=== PATIENT | male | born 1950 | race Caucasian/White ===

== ENCOUNTER 2020-06-06 16:09 | Inpatient (IN) ==
[2020-06-06 17:13] LABS: Basophils % 0.3 %; Eosinophils # 0.1 K/mcL (0.0-0.6); Hemoglobin 15.8 g/dL (12.9-16.9); Immature Granulocytes % 1.2 % (0-4); Lymphocytes # 0.9 K/mcL (0.6-4.6); Lymphocytes % 14.8 %; Mean Corpuscular HGB Conc 33.6 g/dL (31.6-35.5); Mean Corpuscular Hemoglobin 30.3 pg (28.0-33.3); Mean Platelet Volume 10.3 fL (9.4-12.4); Monocytes # 0.9 K/mcL (0.0-1.3); Monocytes % 14.6 %; Platelet Count 199 K/mcL (140-400); Red Blood Count 5.22 M/mcL (4.19-5.50); Red Cell Distribution Width 13.9 % (11.5-14.5); Segmented Neutrophils % 67.1 %; White Blood Count 5.9 K/mcL (4.3-11.1)
[2020-06-06 17:33] LABS: Bacteria,Urine Few per hpf (None-Few); Bilirubin,Urine Negative (Negative); Blood,Urine Negative (Negative); Clarity,Urine Clear (Clear); Color,Urine Light-Yellow (Yellow); Glucose,Urine (UA) Normal (Normal); Hyaline Casts,Urine Moderate per lpf (None Seen); Ketones,Urine Trace mg/dL (Negative); Leukocyte Esterase,Urine Moderate (Negative); Mucus,Urine Few per lpf (None-Few); Nitrite,Urine Negative (Negative); PH,Urine 5.5 pH Units (5.0-8.0); Protein,Urine Negative (Neg-Trace); RBC,Urine 0-3 per hpf (0-3); Specific Gravity,Urine 1.018 (1.010-1.025); Squamous Epithelial Cell,Urine Few per hpf (None-Few); Urobilinogen,Urine Normal (Normal)
[2020-06-06 17:34] LABS: BUN/Creatinine Ratio 20 (6-26); Blood Urea Nitrogen 25 mg/dL (8-23); Calcium 9.2 mg/dL (8.6-10.3); Carbon Dioxide 26 mEq/L (23-29); Chloride 104 mEq/L (98-107); Glucose 98 mg/dL (70-105); Osmolality,Calculated 288 (280-300); Potassium 4.1 mEq/L (3.5-5.1); Sodium 137 mEq/L (136-145); Troponin I < 0.03 ng/mL (< 0.04); eGFR For African Americans > 60 (> 60); eGFR For Non-African Americans 58 (> 60)
[2020-06-06] MEDS ORDERED: Aspirin 81 MG TAB.CHEW PO ONE (17:57)
[2020-06-06 18:16] LABS: Adenovirus Not Detected (Not Detect); Bordetella Pertussis Not Detected (Not Detect); Chlamydophila pneumoniae Not Detected (Not Detect); Coronavirus 229E Not Detected (Not Detect); Coronavirus HKU1 Not Detected (Not Detect); Coronavirus NL63 Not Detected (Not Detect); Coronavirus OC43 Not Detected (Not Detect); Human Metapneumovirus Not Detected (Not Detect); Human Rhinovirus/Enterovirus Not Detected (Not Detect); Influenza A Subtype 2009 H1 Not Detected (Not Detect); Influenza B Not Detected (Not Detect); Mycoplasma pneumoniae Not Detected (Not Detect); Parainfluenza Virus 1 Not Detected (Not Detect); Parainfluenza Virus 2 Not Detected (Not Detect); Parainfluenza Virus 3 Not Detected (Not Detect); Parainfluenza Virus 4 Not Detected (Not Detect); Respiratory Syncytial Virus Not Detected (Not Detect); SARS-CoV-2 Not Detected (Not Detect)
[2020-06-06] MEDS ORDERED: Naloxone 0.4 MG/ML INJ IVP PRN (22:06)
[2020-06-06] MEDS ORDERED: Acetaminophen 325 MG TABLET PO PRN (22:06)
[2020-06-06] MEDS ORDERED: Ondansetron 4 MG/2 ML VIAL IVP PRN (22:06)
[2020-06-06] MEDS ORDERED: Melatonin 3 MG TABLET PO PRN (22:06)
[2020-06-07] MEDS: Carbidopa/Levodopa ER 50/200 TABLET PO SCH ×5 (00:53→21:37)
[2020-06-07 04:55] LABS: Basophils % 0.5 %; Eosinophils # 0.1 K/mcL (0.0-0.6); Eosinophils % 1.9 %; Hematocrit 45.7 % (37.5-50.1); Hemoglobin 15.4 g/dL (12.9-16.9); Immature Granulocytes % 1.1 % (0-4); Lymphocytes # 0.8 K/mcL (0.6-4.6); Lymphocytes % 12.9 %; Mean Corpuscular HGB Conc 33.7 g/dL (31.6-35.5); Mean Corpuscular Hemoglobin 30.1 pg (28.0-33.3); Mean Corpuscular Volume 89.4 fL (83.0-100.0); Mean Platelet Volume 10.2 fL (9.4-12.4); Monocytes # 0.7 K/mcL (0.0-1.3); Monocytes % 10.9 %; Neutrophils # 4.7 K/mcL (1.6-8.9); Platelet Count 186 K/mcL (140-400); Red Blood Count 5.11 M/mcL (4.19-5.50); Red Cell Distribution Width 13.7 % (11.5-14.5); Segmented Neutrophils % 72.7 %; White Blood Count 6.4 K/mcL (4.3-11.1)
[2020-06-07 05:15] LABS: Alanine Aminotransferase 8 Units/L (7-52); Albumin 3.8 g/dL (3.5-5.7); Albumin/Globulin Ratio 1.2 (1.1-2.2); Alkaline Phosphatase 59 Units/L (34-104); Aspartate Amino Transferase 12 Units/L (13-39); BUN/Creatinine Ratio 23 (6-26); Bilirubin,Total 0.7 mg/dL (0.3-1.0); Blood Urea Nitrogen 25 mg/dL (8-23); Calcium 8.9 mg/dL (8.6-10.3); Carbon Dioxide 24 mEq/L (23-29); Chloride 106 mEq/L (98-107); Globulin 3.1 g/dL (2.4-3.5); Glucose 129 mg/dL (70-105); Magnesium 2.1 mg/dL (1.6-2.6); Osmolality,Calculated 290 (280-300); Phosphorous 3.1 mg/dL (2.7-4.5); Potassium 4.5 mEq/L (3.5-5.1); Sodium 137 mEq/L (136-145); Total Protein 6.9 g/dL (6.4-8.9); eGFR For African Americans > 60 (> 60); eGFR For Non-African Americans > 60 (> 60)
[2020-06-07] MEDS ORDERED: Perflutren Lipid Microsphere 1.3 ML in 0.9 % Sodium Chloride 8.7 ML IVP PRN (05:19)
[2020-06-07] MEDS ORDERED: *HR* Heparin 5,000 UNIT/ML VIAL IVP ONE (05:20)
[2020-06-07] MEDS ORDERED: *HR* Heparin 5,000 UNIT/ML VIAL IVP PRN ×2 (05:20)
[2020-06-07 05:59] LABS: Heparin anti-factor XA UFH < 0.04 IU/mL (0.30-0.70); Prothrombin Time 12.1 Seconds (9.4-12.1)
[2020-06-07] MEDS ORDERED: *HR* Heparin 5,000 UNIT/ML VIAL SQ SCH (06:00)
[2020-06-07] MEDS: Heparin 25,000UNIT/250ML 1/2NS 25,000 UNIT/250 ML IV.SOLN IVC SCH (06:19)
[2020-06-07] MEDS: Gabapentin 300 MG CAPSULE PO SCH ×3 (10:04→20:17)
[2020-06-07] MEDS ORDERED: *HR* HYDROcodone/Acet 5/325 mg TABLET PO PRN (18:02)
[2020-06-08 04:11] LABS: Hematocrit 47.5 % (37.5-50.1); Hemoglobin 15.8 g/dL (12.9-16.9); Mean Corpuscular HGB Conc 33.3 g/dL (31.6-35.5); Mean Corpuscular Hemoglobin 29.5 pg (28.0-33.3); Mean Corpuscular Volume 88.8 fL (83.0-100.0); Mean Platelet Volume 10.1 fL (9.4-12.4); Platelet Count 182 K/mcL (140-400); Red Blood Count 5.35 M/mcL (4.19-5.50); Red Cell Distribution Width 14.2 % (11.5-14.5); White Blood Count 5.5 K/mcL (4.3-11.1)
[2020-06-08 04:28] LABS: Alanine Aminotransferase 3 Units/L (7-52); Albumin 3.8 g/dL (3.5-5.7); Albumin/Globulin Ratio 1.4 (1.1-2.2); Alkaline Phosphatase 62 Units/L (34-104); Aspartate Amino Transferase 14 Units/L (13-39); BUN/Creatinine Ratio 26 (6-26); Bilirubin,Total 0.7 mg/dL (0.3-1.0); Blood Urea Nitrogen 28 mg/dL (8-23); Calcium 9.1 mg/dL (8.6-10.3); Carbon Dioxide 25 mEq/L (23-29); Chloride 106 mEq/L (98-107); Globulin 2.8 g/dL (2.4-3.5); Glucose 165 mg/dL (70-105); Osmolality,Calculated 293 (280-300); Potassium 4.2 mEq/L (3.5-5.1); Sodium 137 mEq/L (136-145); Total Protein 6.6 g/dL (6.4-8.9); eGFR For African Americans > 60 (> 60); eGFR For Non-African Americans > 60 (> 60)
[2020-06-08] MEDS: Heparin 25,000UNIT/250ML 1/2NS 25,000 UNIT/250 ML IV.SOLN IVC SCH ×2 (05:04→16:40)
[2020-06-08] MEDS ORDERED: Regadenoson 0.4 MG/5 ML SYRINGE IVP ONE (06:07)
[2020-06-08] MEDS ORDERED: Furosemide 20 MG TABLET PO SCH (09:00)
[2020-06-08] MEDS: Carbidopa/Levodopa ER 50/200 TABLET PO SCH ×2 (10:26→20:47)
[2020-06-08] MEDS: Gabapentin 300 MG CAPSULE PO SCH ×3 (10:26→20:47)
[2020-06-08] MEDS: amLODIPine 5 MG TABLET PO SCH (12:27)
[2020-06-08] MEDS: Aspirin 81 MG TAB.CHEW PO SCH (17:47)
[2020-06-08] MEDS: Furosemide 20 MG TABLET PO SCH (17:47)
[2020-06-09 04:10] LABS: Hematocrit 46.2 % (37.5-50.1); Hemoglobin 15.4 g/dL (12.9-16.9); Mean Corpuscular HGB Conc 33.3 g/dL (31.6-35.5); Mean Corpuscular Hemoglobin 30.3 pg (28.0-33.3); Mean Corpuscular Volume 90.8 fL (83.0-100.0); Mean Platelet Volume 10.4 fL (9.4-12.4); Platelet Count 179 K/mcL (140-400); Red Blood Count 5.09 M/mcL (4.19-5.50); Red Cell Distribution Width 14.1 % (11.5-14.5); White Blood Count 6.5 K/mcL (4.3-11.1)
[2020-06-09 04:30] LABS: Alanine Aminotransferase < 3 Units/L (7-52); Albumin 3.5 g/dL (3.5-5.7); Albumin/Globulin Ratio 1.3 (1.1-2.2); Alkaline Phosphatase 55 Units/L (34-104); Aspartate Amino Transferase 12 Units/L (13-39); BUN/Creatinine Ratio 26 (6-26); Bilirubin,Total 0.9 mg/dL (0.3-1.0); Blood Urea Nitrogen 31 mg/dL (8-23); Calcium 8.8 mg/dL (8.6-10.3); Carbon Dioxide 27 mEq/L (23-29); Chloride 105 mEq/L (98-107); Globulin 2.7 g/dL (2.4-3.5); Glucose 105 mg/dL (70-105); Osmolality,Calculated 291 (280-300); Sodium 137 mEq/L (136-145); Total Protein 6.2 g/dL (6.4-8.9); eGFR For African Americans > 60 (> 60); eGFR For Non-African Americans > 60 (> 60)
[2020-06-09] MEDS: Furosemide 20 MG TABLET PO SCH (06:06)
[2020-06-09] MEDS: Gabapentin 300 MG CAPSULE PO SCH (08:51)
[2020-06-09] MEDS: Aspirin 81 MG TAB.CHEW PO SCH (08:51)
[2020-06-09] MEDS: Carbidopa/Levodopa ER 50/200 TABLET PO SCH (08:51)
[2020-06-09] MEDS: Heparin 25,000UNIT/250ML 1/2NS 25,000 UNIT/250 ML IV.SOLN IVC SCH (09:22)
[2020-06-09] MEDS: amLODIPine 5 MG TABLET PO SCH (09:56)
[2020-06-09 14:27] VITALS: BP 105/60
== END 2020-06-09 14:30 | disposition home health service (06) | DRG 303 ==
LOC: 3BNU 16:09 → EMEROOARM 16:09 → SUATTDRO 19:30 → 3BNU 20:16
PROVIDERS: ADMIT Family Medicine; ATTEND Registered Nurse

== ENCOUNTER 2020-06-18 23:03 | Inpatient (IN) ==
[2020-06-19] MEDS ORDERED: Isovue-370 500 ML BOTTLE IVP ONE (00:17)
[2020-06-19 00:32] LABS: Basophils # 0.1 K/mcL (0.0-0.2); Basophils % 0.9 %; Eosinophils # 0.2 K/mcL (0.0-0.6); Eosinophils % 3.1 %; Hematocrit 48.8 % (37.5-50.1); Hemoglobin 15.9 g/dL (12.9-16.9); Immature Granulocytes % 1.7 % (0-4); Lymphocytes # 1.2 K/mcL (0.6-4.6); Lymphocytes % 20.5 %; Mean Corpuscular HGB Conc 32.6 g/dL (31.6-35.5); Mean Corpuscular Hemoglobin 29.2 pg (28.0-33.3); Mean Corpuscular Volume 89.7 fL (83.0-100.0); Mean Platelet Volume 10.1 fL (9.4-12.4); Monocytes # 0.9 K/mcL (0.0-1.3); Monocytes % 15.1 %; Neutrophils # 3.4 K/mcL (1.6-8.9); Platelet Count 198 K/mcL (140-400); Red Blood Count 5.44 M/mcL (4.19-5.50); Segmented Neutrophils % 58.7 %; White Blood Count 5.8 K/mcL (4.3-11.1)
[2020-06-19 00:46] LABS: BUN/Creatinine Ratio 21 (6-26); Blood Urea Nitrogen 29 mg/dL (8-23); Calcium 9.3 mg/dL (8.6-10.3); Carbon Dioxide 23 mEq/L (23-29); Chloride 105 mEq/L (98-107); Glucose 109 mg/dL (70-105); Osmolality,Calculated 294 (280-300); Potassium 4.8 mEq/L (3.5-5.1); Sodium 139 mEq/L (136-145); eGFR For African Americans > 60 (> 60); eGFR For Non-African Americans 50 (> 60)
[2020-06-19 00:47] LABS: Troponin I < 0.03 ng/mL (< 0.04)
[2020-06-19] MEDS ORDERED: Aspirin 81 MG TAB.CHEW PO ONE (03:25)
[2020-06-19] MEDS ORDERED: Melatonin 3 MG TABLET PO PRN (04:57)
[2020-06-19] MEDS ORDERED: Acetaminophen 325 MG TABLET PO PRN (04:57)
[2020-06-19] MEDS ORDERED: Nystatin POWDER 30 GM BOTTLE TP PRN (04:57)
[2020-06-19] MEDS ORDERED: Ondansetron 4 MG/2 ML VIAL IVP PRN (05:09)
[2020-06-19] MEDS ORDERED: Naloxone 0.4 MG/ML INJ IVP PRN (05:09)
[2020-06-19] MEDS ORDERED: Nitroglycerin 0.4 MG TAB.SUBL SL PRN (05:09)
[2020-06-19] MEDS ORDERED: *HR* Heparin 5,000 UNIT/ML VIAL SQ SCH (06:15)
[2020-06-19] MEDS: *HR* Heparin 5,000 UNIT/ML VIAL SQ SCH ×3 (08:52→20:10)
[2020-06-19] MEDS: Cyanocobalamin (B-12) 1,000 MCG TABLET PO SCH (08:53)
[2020-06-19] MEDS: Gabapentin 300 MG CAPSULE PO SCH ×3 (08:53→20:10)
[2020-06-19] MEDS: Furosemide 20 MG TABLET PO SCH (08:53)
[2020-06-19] MEDS: Cholecalciferol (D-3) 1,000 UNIT (25MCG) TABLET PO SCH (08:53)
[2020-06-19] MEDS: Carbidopa/Levodopa ER 50/200 TABLET PO SCH ×3 (08:56→20:10)
[2020-06-19] MEDS: Fluticasone Propionate Nasal 50 MCG/SPRAY BOTTLE NS SCH (08:57)
[2020-06-19] MEDS ORDERED: amLODIPine 5 MG TABLET PO SCH (09:00)
[2020-06-19] MEDS ORDERED: Aspirin Enteric Coated 81 MG Tablet PO SCH (09:00)
[2020-06-19] MEDS ORDERED: *HR* HYDROcodone/Acet 5/325 mg TABLET PO PRN (19:02)
[2020-06-19] MEDS: amLODIPine 5 MG TABLET PO SCH (20:11)
[2020-06-19] MEDS: Clotrimazole 1% CRM 15 GM TUBE TP SCH (20:11)
[2020-06-20 03:16] LABS: Estimated Average Glucose 143 mg/dl; Hemoglobin A1C 6.6 %
[2020-06-20 03:18] LABS: Hematocrit 45.3 % (37.5-50.1); Hemoglobin 14.5 g/dL (12.9-16.9); Mean Corpuscular Hemoglobin 29.2 pg (28.0-33.3); Mean Corpuscular Volume 91.3 fL (83.0-100.0); Mean Platelet Volume 10.4 fL (9.4-12.4); Platelet Count 207 K/mcL (140-400); Red Blood Count 4.96 M/mcL (4.19-5.50); Red Cell Distribution Width 14.1 % (11.5-14.5); White Blood Count 6.8 K/mcL (4.3-11.1)
[2020-06-20 03:39] LABS: BUN/Creatinine Ratio 23 (6-26); Blood Urea Nitrogen 31 mg/dL (8-23); Carbon Dioxide 25 mEq/L (23-29); Chloride 103 mEq/L (98-107); Chol/HDL Ratio 2.9 (0-4.9); Cholesterol 95 mg/dL (< 200); Glucose 162 mg/dL (70-105); HDL Cholesterol 33 mg/dL (40-59); LDL Cholesterol,Calculated 49 mg/dL (< 100); Magnesium 2.1 mg/dL (1.6-2.6); Osmolality,Calculated 292 (280-300); Potassium 4.5 mEq/L (3.5-5.1); Sodium 136 mEq/L (136-145); Triglycerides 66 mg/dL (< 150); eGFR For African Americans > 60 (> 60); eGFR For Non-African Americans 52 (> 60)
[2020-06-20] MEDS: *HR* Heparin 5,000 UNIT/ML VIAL SQ SCH ×3 (05:31→21:07)
[2020-06-20] MEDS: Carbidopa/Levodopa ER 50/200 TABLET PO SCH ×3 (07:54→17:27)
[2020-06-20] MEDS: Aspirin 81 MG TAB.CHEW PO SCH (09:52)
[2020-06-20] MEDS: Furosemide 20 MG TABLET PO SCH (09:53)
[2020-06-20] MEDS: Gabapentin 300 MG CAPSULE PO SCH ×3 (09:54→21:07)
[2020-06-20] MEDS: Clotrimazole 1% CRM 15 GM TUBE TP SCH ×2 (09:54→21:13)
[2020-06-20] MEDS: Cholecalciferol (D-3) 1,000 UNIT (25MCG) TABLET PO SCH (09:55)
[2020-06-20] MEDS: Cyanocobalamin (B-12) 1,000 MCG TABLET PO SCH (09:55)
[2020-06-20] MEDS: Fluticasone Propionate Nasal 50 MCG/SPRAY BOTTLE NS SCH (09:55)
[2020-06-20] MEDS: amLODIPine 5 MG TABLET PO SCH ×2 (09:55→21:07)
[2020-06-20 10:41] LABS: Bilirubin,Urine Negative (Negative); Blood,Urine Trace (Negative); Clarity,Urine Clear (Clear); Color,Urine Yellow (Yellow); Glucose,Urine (UA) Normal (Normal); Ketones,Urine Trace mg/dL (Negative); Leukocyte Esterase,Urine Negative (Negative); Mucus,Urine Few per lpf (None-Few); Nitrite,Urine Negative (Negative); Protein,Urine Trace mg/dL (Neg-Trace); Specific Gravity,Urine 1.027 (1.010-1.025); Squamous Epithelial Cell,Urine Few per hpf (None-Few); Urobilinogen,Urine Normal (Normal); WBC,Urine 0-3 per hpf (0-3)
[2020-06-20] MEDS ORDERED: Acetaminophen 325 MG TABLET PO PRN (11:57)
[2020-06-20] MEDS: Sennosides/Docusate Sodium TABLET PO SCH ×2 (14:51→21:07)
[2020-06-20] MEDS: polyethylene glycoL 3350 17 GM POWD.PACK PO SCH (14:51)
[2020-06-21 03:05] LABS: Hematocrit 51.7 % (37.5-50.1); Mean Corpuscular HGB Conc 32.7 g/dL (31.6-35.5); Mean Corpuscular Volume 91.7 fL (83.0-100.0); Mean Platelet Volume 10.1 fL (9.4-12.4); Platelet Count 190 K/mcL (140-400); Red Blood Count 5.64 M/mcL (4.19-5.50); Red Cell Distribution Width 14.1 % (11.5-14.5)
[2020-06-21 03:06] LABS: Hemoglobin 16.9 g/dL (12.9-16.9)
[2020-06-21 03:43] LABS: BUN/Creatinine Ratio 29 (6-26); Blood Urea Nitrogen 34 mg/dL (8-23); Calcium 9.1 mg/dL (8.6-10.3); Carbon Dioxide 20 mEq/L (23-29); Chloride 103 mEq/L (98-107); Glucose 96 mg/dL (70-105); Osmolality,Calculated 283 (280-300); Potassium 4.9 mEq/L (3.5-5.1); Sodium 133 mEq/L (136-145); eGFR For African Americans > 60 (> 60); eGFR For Non-African Americans > 60 (> 60)
[2020-06-21] MEDS: *HR* Heparin 5,000 UNIT/ML VIAL SQ SCH ×3 (05:52→21:35)
[2020-06-21] MEDS: Carbidopa/Levodopa ER 50/200 TABLET PO SCH ×3 (06:22→17:19)
[2020-06-21] MEDS: amLODIPine 5 MG TABLET PO SCH (07:28)
[2020-06-21] MEDS: Cyanocobalamin (B-12) 1,000 MCG TABLET PO SCH (07:39)
[2020-06-21] MEDS: Furosemide 20 MG TABLET PO SCH (07:39)
[2020-06-21] MEDS: Aspirin 81 MG TAB.CHEW PO SCH (07:39)
[2020-06-21] MEDS: Sennosides/Docusate Sodium TABLET PO SCH ×3 (07:40→21:44)
[2020-06-21] MEDS: Gabapentin 300 MG CAPSULE PO SCH ×3 (07:40→21:35)
[2020-06-21] MEDS: Clotrimazole 1% CRM 15 GM TUBE TP SCH ×2 (07:40→21:36)
[2020-06-21] MEDS: Cholecalciferol (D-3) 1,000 UNIT (25MCG) TABLET PO SCH (07:40)
[2020-06-21] MEDS: polyethylene glycoL 3350 17 GM POWD.PACK PO SCH (07:40)
[2020-06-21] MEDS: Fluticasone Propionate Nasal 50 MCG/SPRAY BOTTLE NS SCH (07:41)
[2020-06-21] MEDS: *HR* Metformin 500 MG TABLET PO SCH ×2 (11:49→15:09)
[2020-06-21] MEDS ORDERED: 0.9 % Sodium Chloride 250 ML IV ONE (13:49)
[2020-06-21] MEDS ORDERED: Acetaminophen 325 MG TABLET PO PRN (15:32)
[2020-06-21] MEDS ORDERED: *HR* HYDROcodone/Acet 5/325 mg TABLET PO PRN (15:33)
[2020-06-21] MEDS ORDERED: 0.9 % Sodium Chloride 500 ML IV ONE (15:54)
[2020-06-22] MEDS: *HR* Heparin 5,000 UNIT/ML VIAL SQ SCH (06:08)
[2020-06-22] MEDS: Carbidopa/Levodopa ER 50/200 TABLET PO SCH (06:09)
[2020-06-22] MEDS: Cyanocobalamin (B-12) 1,000 MCG TABLET PO SCH (09:09)
[2020-06-22] MEDS: Clotrimazole 1% CRM 15 GM TUBE TP SCH (09:10)
[2020-06-22] MEDS: Fluticasone Propionate Nasal 50 MCG/SPRAY BOTTLE NS SCH (09:10)
[2020-06-22] MEDS: Cholecalciferol (D-3) 1,000 UNIT (25MCG) TABLET PO SCH (09:10)
[2020-06-22] MEDS: *HR* Metformin 500 MG TABLET PO SCH (09:10)
[2020-06-22] MEDS: Furosemide 20 MG TABLET PO SCH (09:10)
[2020-06-22] MEDS: Sennosides/Docusate Sodium TABLET PO SCH (09:10)
[2020-06-22] MEDS: Aspirin 81 MG TAB.CHEW PO SCH (09:10)
[2020-06-22] MEDS: polyethylene glycoL 3350 17 GM POWD.PACK PO SCH (09:10)
[2020-06-22] MEDS: Gabapentin 300 MG CAPSULE PO SCH (09:10)
[2020-06-22 10:15] VITALS: BP 103/60
== END 2020-06-22 13:59 | disposition home or self-care (01) | DRG 313 ==
LOC: 2ANU 23:03 → EMEROOARM 23:03 → SUATTDRO 06-19 04:22 → 2ANU 06-19 04:50 → SUATTDRO 06-20 20:54
PROVIDERS: ADMIT Student in an Organized Health Care Education/Training Program; ATTEND Internal Medicine

== ENCOUNTER 2020-08-20 14:29 | Inpatient (IN) ==
[2020-08-20] MEDS ORDERED: Orphenadrine 60 MG/2 ML VIAL IM ONE (16:44)
[2020-08-20] MEDS ORDERED: *HR* OxyCODONE/APAP 5/325 TABLET PO ONE (16:44)
[2020-08-20 18:29] LABS: Basophils % 0.5 %; Eosinophils # 0.2 K/mcL (0.0-0.6); Eosinophils % 2.3 %; Hematocrit 46.7 % (37.5-50.1); Hemoglobin 15.3 g/dL (12.9-16.9); Immature Granulocytes % 1.3 % (0-4); Lymphocytes # 1.1 K/mcL (0.6-4.6); Mean Corpuscular HGB Conc 32.8 g/dL (31.6-35.5); Mean Corpuscular Hemoglobin 29.4 pg (28.0-33.3); Mean Corpuscular Volume 89.8 fL (83.0-100.0); Mean Platelet Volume 10.6 fL (9.4-12.4); Monocytes # 0.9 K/mcL (0.0-1.3); Monocytes % 11.8 %; Neutrophils # 5.2 K/mcL (1.6-8.9); Platelet Count 200 K/mcL (140-400); Red Cell Distribution Width 14.4 % (11.5-14.5); Segmented Neutrophils % 69.1 %; White Blood Count 7.5 K/mcL (4.3-11.1)
[2020-08-20 19:04] LABS: Alanine Aminotransferase < 3 Units/L (7-52); Albumin 3.7 g/dL (3.5-5.7); Albumin/Globulin Ratio 1.4 (1.1-2.2); Alkaline Phosphatase 58 Units/L (34-104); Aspartate Amino Transferase 12 Units/L (13-39); BUN/Creatinine Ratio 18 (6-26); Bilirubin,Total 0.8 mg/dL (0.3-1.0); Blood Urea Nitrogen 19 mg/dL (8-23); Calcium 9.1 mg/dL (8.6-10.3); Carbon Dioxide 25 mEq/L (23-29); Chloride 104 mEq/L (98-107); Globulin 2.6 g/dL (2.4-3.5); Glucose 104 mg/dL (70-105); Osmolality,Calculated 289 (280-300); Potassium 3.7 mEq/L (3.5-5.1); Sodium 138 mEq/L (136-145); Total Protein 6.3 g/dL (6.4-8.9); eGFR For African Americans > 60 (> 60); eGFR For Non-African Americans > 60 (> 60)
[2020-08-20] MEDS ORDERED: Naloxone 0.4 MG/ML INJ IVP PRN (20:47)
[2020-08-20] MEDS ORDERED: Ondansetron 4 MG/2 ML VIAL IVP PRN (20:47)
[2020-08-20] MEDS ORDERED: Melatonin 3 MG TABLET PO PRN (20:47)
[2020-08-20] MEDS ORDERED: Acetaminophen 325 MG TABLET PO PRN (20:47)
[2020-08-20] MEDS ORDERED: D5% in Water 1,000 ML IVC PRN (22:41)
[2020-08-20] MEDS ORDERED: *HR* Dextrose 50 % in Water (Vial) 50 ML VIAL IVP PRN (22:41)
[2020-08-20] MEDS ORDERED: Dextrose Gel 15 GM/37.5 ML TUBE PO PRN ×2 (22:41)
[2020-08-20] MEDS: Insulin LISPRO 300 UNITS/3 ML VIAL SUBQ SCH (23:47)
[2020-08-21 02:07] LABS: Basophils % 0.6 %; Eosinophils # 0.2 K/mcL (0.0-0.6); Eosinophils % 2.4 %; Hematocrit 47.8 % (37.5-50.1); Hemoglobin 15.9 g/dL (12.9-16.9); Immature Granulocytes % 1.1 % (0-4); Lymphocytes # 1.2 K/mcL (0.6-4.6); Lymphocytes % 16.9 %; Mean Corpuscular HGB Conc 33.3 g/dL (31.6-35.5); Mean Corpuscular Hemoglobin 29.7 pg (28.0-33.3); Mean Corpuscular Volume 89.3 fL (83.0-100.0); Mean Platelet Volume 10.3 fL (9.4-12.4); Monocytes # 0.9 K/mcL (0.0-1.3); Monocytes % 12.6 %; Neutrophils # 4.8 K/mcL (1.6-8.9); Platelet Count 201 K/mcL (140-400); Red Blood Count 5.35 M/mcL (4.19-5.50); Red Cell Distribution Width 14.5 % (11.5-14.5); Segmented Neutrophils % 66.4 %; White Blood Count 7.2 K/mcL (4.3-11.1)
[2020-08-21 02:26] LABS: BUN/Creatinine Ratio 21 (6-26); Blood Urea Nitrogen 20 mg/dL (8-23); Calcium 9.2 mg/dL (8.6-10.3); Carbon Dioxide 26 mEq/L (23-29); Chloride 104 mEq/L (98-107); Glucose 120 mg/dL (70-105); Magnesium 1.5 mg/dL (1.6-2.6); Osmolality,Calculated 292 (280-300); Phosphorous 2.9 mg/dL (2.7-4.5); Potassium 3.6 mEq/L (3.5-5.1); Sodium 139 mEq/L (136-145); eGFR For African Americans > 60 (> 60); eGFR For Non-African Americans > 60 (> 60)
[2020-08-21] MEDS: Insulin LISPRO 300 UNITS/3 ML VIAL SUBQ SCH ×2 (06:18→12:08)
[2020-08-21] MEDS: *HR* Heparin 5,000 UNIT/ML VIAL SQ SCH ×2 (06:23→17:44)
[2020-08-21] MEDS: Carbidopa/Levodopa ER 50/200 TABLET PO SCH ×3 (11:36→21:26)
[2020-08-21] MEDS: Gabapentin 300 MG CAPSULE PO SCH ×2 (14:22→21:26)
[2020-08-21] MEDS ORDERED: Melatonin 3 MG TABLET PO PRN (17:13)
[2020-08-21] MEDS: Clotrimazole 1% CRM 15 GM TUBE TP SCH (21:28)
[2020-08-22 05:15] LABS: Hematocrit 48.7 % (37.5-50.1); Hemoglobin 15.8 g/dL (12.9-16.9); Mean Corpuscular HGB Conc 32.4 g/dL (31.6-35.5); Mean Corpuscular Hemoglobin 29.3 pg (28.0-33.3); Mean Corpuscular Volume 90.4 fL (83.0-100.0); Mean Platelet Volume 10.1 fL (9.4-12.4); Platelet Count 200 K/mcL (140-400); Red Blood Count 5.39 M/mcL (4.19-5.50); Red Cell Distribution Width 14.7 % (11.5-14.5); White Blood Count 7.1 K/mcL (4.3-11.1)
[2020-08-22 05:33] LABS: Estimated Average Glucose 131 mg/dl; Hemoglobin A1C 6.2 %
[2020-08-22 05:37] LABS: % Iron Saturation 18 % (20-55); BUN/Creatinine Ratio 20 (6-26); Blood Urea Nitrogen 20 mg/dL (8-23); Calcium 9.3 mg/dL (8.6-10.3); Carbon Dioxide 27 mEq/L (23-29); Chloride 102 mEq/L (98-107); Glucose 124 mg/dL (70-105); Iron 55 mcg/dL (65-175); Magnesium 1.9 mg/dL (1.6-2.6); Osmolality,Calculated 288 (280-300); Phosphorous 2.4 mg/dL (2.7-4.5); Potassium 3.7 mEq/L (3.5-5.1); Sodium 137 mEq/L (136-145); Transferrin 224 mg/dL (203-362); eGFR For African Americans > 60 (> 60); eGFR For Non-African Americans > 60 (> 60)
[2020-08-22 05:53] LABS: Ferritin 81 ng/mL (20-250)
[2020-08-22 05:58] LABS: Folate 10.1 ng/mL (3.0-16.0)
[2020-08-22] MEDS: *HR* Heparin 5,000 UNIT/ML VIAL SQ SCH ×2 (06:19→17:41)
[2020-08-22] MEDS: Insulin LISPRO 300 UNITS/3 ML VIAL SUBQ SCH ×3 (07:17→15:55)
[2020-08-22] MEDS ORDERED: Iron Sucrose Complex 400 MG in 0.9 % Sodium Chloride 250 ML IVPB ONE (08:05)
[2020-08-22] MEDS: Cholecalciferol (D-3) 1,000 UNIT (25MCG) TABLET PO SCH (08:55)
[2020-08-22] MEDS: Cyanocobalamin (B-12) 1,000 MCG TABLET PO SCH (08:55)
[2020-08-22] MEDS: Carbidopa/Levodopa ER 50/200 TABLET PO SCH ×3 (08:56→20:05)
[2020-08-22] MEDS: Gabapentin 300 MG CAPSULE PO SCH ×3 (08:56→20:09)
[2020-08-22] MEDS: Aspirin 81 MG TAB.CHEW PO SCH (08:56)
[2020-08-22] MEDS ORDERED: Furosemide 20 MG TABLET PO SCH (09:00)
[2020-08-22] MEDS: Clotrimazole 1% CRM 15 GM TUBE TP SCH ×2 (10:11→20:07)
[2020-08-22] MEDS: Fluticasone Propionate Nasal 50 MCG/SPRAY BOTTLE NS SCH (10:12)
[2020-08-22] MEDS ORDERED: Baclofen 10 MG TABLET PO ONE (12:34)
[2020-08-22 18:04] LABS: Bacteria,Urine Few per hpf (None-Few); Bilirubin,Urine Negative (Negative); Blood,Urine Negative (Negative); Clarity,Urine Clear (Clear); Color,Urine Yellow (Yellow); Glucose,Urine (UA) Normal (Normal); Ketones,Urine Trace mg/dL (Negative); Leukocyte Esterase,Urine Moderate (Negative); Mucus,Urine Few per lpf (None-Few); Nitrite,Urine Negative (Negative); Protein,Urine Trace mg/dL (Neg-Trace); Specific Gravity,Urine 1.026 (1.010-1.025); Squamous Epithelial Cell,Urine Few per hpf (None-Few); Urobilinogen,Urine Normal (Normal); WBC,Urine 15-30 per hpf (0-3)
[2020-08-22] MEDS: Baclofen 10 MG TABLET PO SCH (20:05)
[2020-08-23 03:43] LABS: Hematocrit 52.8 % (37.5-50.1); Hemoglobin 17.1 g/dL (12.9-16.9); Mean Corpuscular HGB Conc 32.4 g/dL (31.6-35.5); Mean Corpuscular Hemoglobin 29.6 pg (28.0-33.3); Mean Corpuscular Volume 91.3 fL (83.0-100.0); Platelet Count 213 K/mcL (140-400); Red Blood Count 5.78 M/mcL (4.19-5.50); Red Cell Distribution Width 14.6 % (11.5-14.5); White Blood Count 6.8 K/mcL (4.3-11.1)
[2020-08-23 04:04] LABS: BUN/Creatinine Ratio 24 (6-26); Blood Urea Nitrogen 25 mg/dL (8-23); Calcium 9.8 mg/dL (8.6-10.3); Carbon Dioxide 27 mEq/L (23-29); Chloride 101 mEq/L (98-107); Glucose 87 mg/dL (70-105); Magnesium 2.1 mg/dL (1.6-2.6); Osmolality,Calculated 292 (280-300); Phosphorous 3.4 mg/dL (2.7-4.5); Sodium 139 mEq/L (136-145); eGFR For African Americans > 60 (> 60); eGFR For Non-African Americans > 60 (> 60)
[2020-08-23] MEDS: *HR* Heparin 5,000 UNIT/ML VIAL SQ SCH (05:18)
[2020-08-23] MEDS: Insulin LISPRO 300 UNITS/3 ML VIAL SUBQ SCH ×3 (07:44→17:44)
[2020-08-23] MEDS ORDERED: Multivit/Ca/Min/Fe/FA 1 TAB TABLET PO SCH (08:00)
[2020-08-23] MEDS: Cholecalciferol (D-3) 1,000 UNIT (25MCG) TABLET PO SCH (08:21)
[2020-08-23] MEDS: Aspirin 81 MG TAB.CHEW PO SCH (08:21)
[2020-08-23] MEDS: Cyanocobalamin (B-12) 1,000 MCG TABLET PO SCH (08:21)
[2020-08-23] MEDS: Gabapentin 300 MG CAPSULE PO SCH ×2 (08:22→13:41)
[2020-08-23] MEDS: Baclofen 10 MG TABLET PO SCH (08:22)
[2020-08-23] MEDS: Fluticasone Propionate Nasal 50 MCG/SPRAY BOTTLE NS SCH (08:32)
[2020-08-23] MEDS: Carbidopa/Levodopa ER 50/200 TABLET PO SCH (09:24)
[2020-08-23] MEDS: Clotrimazole 1% CRM 15 GM TUBE TP SCH (10:08)
[2020-08-23 15:19] VITALS: BP 147/74
== END 2020-08-23 18:14 | disposition short-term general hospital (02) | DRG 552 ==
LOC: 3NENU 14:29 → EMEROOARM 14:29 → SUATTDRO 19:37 → 3NENU 20:45 → SUATTDRO 08-21 22:03
PROVIDERS: ADMIT Family Medicine; ATTEND Family Medicine

== ENCOUNTER 2021-04-11 17:58 | Observation (INO) ==
[2021-04-11 19:46] LABS: Basophils # 0.1 K/mcL (0.0-0.2); Basophils % 0.9 %; Eosinophils # 0.2 K/mcL (0.0-0.6); Eosinophils % 2.4 %; Hematocrit 45.7 % (37.5-50.1); Hemoglobin 15.9 g/dL (12.9-16.9); Immature Granulocytes % 3.3 % (0-4); Lymphocytes # 1.2 K/mcL (0.6-4.6); Lymphocytes % 17.7 %; Mean Corpuscular HGB Conc 34.8 g/dL (31.6-35.5); Mean Corpuscular Hemoglobin 30.7 pg (28.0-33.3); Mean Corpuscular Volume 88.2 fL (83.0-100.0); Mean Platelet Volume 11.8 fL (9.4-12.4); Monocytes % 14.7 %; Neutrophils # 4.2 K/mcL (1.6-8.9); Platelet Count 229 K/mcL (140-400); Red Blood Count 5.18 M/mcL (4.19-5.50); Red Cell Distribution Width 13.8 % (11.5-14.5)
[2021-04-11 19:56] LABS: INR 1.2; Prothrombin Time 13.2 Seconds (9.4-12.1)
[2021-04-11 19:59] LABS: Activated Partial Thrombo Time 26.3 Seconds (26.0-36.0); Alanine Aminotransferase < 3 Units/L (7-52); Albumin 3.6 g/dL (3.5-5.7); Albumin/Globulin Ratio 1.2 (1.1-2.2); Alkaline Phosphatase 63 Units/L (34-104); Aspartate Amino Transferase 11 Units/L (13-39); BUN/Creatinine Ratio 27 (6-26); Bilirubin,Direct 0.3 mg/dL (0.0-0.2); Bilirubin,Indirect 0.8 mg/dL (0.0-1.0); Bilirubin,Total 1.1 mg/dL (0.3-1.0); Blood Urea Nitrogen 49 mg/dL (8-23); Calcium 8.6 mg/dL (8.6-10.3); Carbon Dioxide 23 mEq/L (23-29); Chloride 101 mEq/L (98-107); Creatine Kinase 118 Units/L (30-223); Ethanol < 10 mg/dL (Less than 10); Globulin 2.9 g/dL (2.4-3.5); Glucose 100 mg/dL (70-105); Osmolality,Calculated 293 (280-300); Potassium 3.7 mEq/L (3.5-5.1); Sodium 135 mEq/L (136-145); Total Protein 6.5 g/dL (6.4-8.9); Troponin I 0.04 ng/mL (< 0.04); eGFR For African Americans 44 (> 60); eGFR For Non-African Americans 37 (> 60)
[2021-04-11 21:40] LABS: Adenovirus Not Detected (Not Detect); Bordetella Pertussis Not Detected (Not Detect); Chlamydophila pneumoniae Not Detected (Not Detect); Coronavirus 229E Not Detected (Not Detect); Coronavirus HKU1 Not Detected (Not Detect); Coronavirus NL63 Not Detected (Not Detect); Coronavirus OC43 Not Detected (Not Detect); Human Metapneumovirus Not Detected (Not Detect); Human Rhinovirus/Enterovirus Not Detected (Not Detect); Influenza A Subtype 2009 H1 Not Detected (Not Detect); Influenza B Not Detected (Not Detect); Mycoplasma pneumoniae Not Detected (Not Detect); Parainfluenza Virus 1 Not Detected (Not Detect); Parainfluenza Virus 2 Not Detected (Not Detect); Parainfluenza Virus 3 Not Detected (Not Detect); Parainfluenza Virus 4 Not Detected (Not Detect); Respiratory Syncytial Virus Not Detected (Not Detect); SARS-CoV-2 Not Detected (Not Detect)
[2021-04-11] MEDS ORDERED: D5% in Water 1,000 ML IVC PRN (22:30)
[2021-04-11] MEDS ORDERED: Ondansetron ODT 4 MG TAB.RAPDIS SL PRN (22:30)
[2021-04-11] MEDS ORDERED: Naloxone 0.4 MG/ML INJ IVP PRN (22:30)
[2021-04-11] MEDS ORDERED: *HR* Dextrose 50 % in Water (Syg) 50 ML SYRINGE IVP PRN (22:30)
[2021-04-11] MEDS ORDERED: Dextrose Gel 15 GM/37.5 ML TUBE PO PRN ×2 (22:30)
[2021-04-11] MEDS ORDERED: Acetaminophen 325 MG TABLET PO PRN (22:30)
[2021-04-11] MEDS ORDERED: Melatonin 3 MG TABLET PO PRN (22:30)
[2021-04-11] MEDS ORDERED: Aspirin 325 MG TABLET PO ONE (23:16)
[2021-04-11] MEDS ORDERED: Sennosides/Docusate Sodium TABLET PO PRN (23:30)
[2021-04-12] MEDS ORDERED: 0.9 % Sodium Chloride 1,000 ML IVC ONE (01:03)
[2021-04-12] MEDS ORDERED: 0.9 % Sodium Chloride 1,000 ML IVC SCH (02:30)
[2021-04-12 05:28] LABS: Basophils # 0.1 K/mcL (0.0-0.2); Basophils % 0.9 %; Eosinophils # 0.3 K/mcL (0.0-0.6); Eosinophils % 4.5 %; Immature Granulocytes % 3.4 % (0-4); Lymphocytes # 1.2 K/mcL (0.6-4.6); Lymphocytes % 17.4 %; Mean Corpuscular Hemoglobin 30.4 pg (28.0-33.3); Mean Corpuscular Volume 89.2 fL (83.0-100.0); Mean Platelet Volume 11.5 fL (9.4-12.4); Monocytes # 1.1 K/mcL (0.0-1.3); Monocytes % 16.3 %; Neutrophils # 3.9 K/mcL (1.6-8.9); Platelet Count 213 K/mcL (140-400); Red Blood Count 4.71 M/mcL (4.19-5.50); Red Cell Distribution Width 13.7 % (11.5-14.5); Segmented Neutrophils % 57.5 %; White Blood Count 6.7 K/mcL (4.3-11.1)
[2021-04-12 05:34] LABS: Hemoglobin 14.3 g/dL (12.9-16.9)
[2021-04-12] MEDS: *HR* Heparin 5,000 UNIT/ML VIAL SQ SCH ×3 (05:35→23:21)
[2021-04-12 05:41] LABS: BUN/Creatinine Ratio 32 (6-26); Blood Urea Nitrogen 41 mg/dL (8-23); Calcium 8.4 mg/dL (8.6-10.3); Carbon Dioxide 25 mEq/L (23-29); Chloride 103 mEq/L (98-107); Chol/HDL Ratio 3.2 (0-4.9); Cholesterol 76 mg/dL (< 200); Glucose 83 mg/dL (70-105); HDL Cholesterol 24 mg/dL (40-59); LDL Cholesterol,Calculated 28 mg/dL (< 100); Magnesium 1.7 mg/dL (1.6-2.6); Osmolality,Calculated 289 (280-300); Phosphorous 2.6 mg/dL (2.7-4.5); Potassium 3.3 mEq/L (3.5-5.1); Sodium 135 mEq/L (136-145); Triglycerides 122 mg/dL (< 150); eGFR For African Americans > 60 (> 60); eGFR For Non-African Americans 56 (> 60)
[2021-04-12] MEDS ORDERED: Magnesium Sulfate 1 GM/102 ML PIGGYBACK IVPB ONE (05:53)
[2021-04-12] MEDS ORDERED: Potassium Phosphate 44 MEQ in 0.9 % Sodium Chloride 250 ML IVPB ONE (05:53)
[2021-04-12 06:39] LABS: Amphetamine Screen,Urine Negative ng/mL (Cutoff=1000); Barbiturate Screen,Urine Negative ng/mL (Cutoff=200); Benzodiazepines Screen,Urine Negative ng/mL (Cutoff=300); Cannabinoid Screen,Urine Negative ng/mL (Cutoff = 50); Cocaine Screen,Urine Negative ng/mL (Cutoff= 300); Opiate Screen,Urine Negative ng/mL (Cutoff=300); Phencyclidine Screen,Urine Negative ng/mL (Cutoff=25)
[2021-04-12 06:44] LABS: Bilirubin,Urine Negative (Negative); Blood,Urine Negative (Negative); Clarity,Urine Clear (Clear); Color,Urine Yellow (Yellow); Glucose,Urine (UA) Normal (Normal); Hyaline Casts,Urine Few per lpf (None Seen); Ketones,Urine Trace mg/dL (Negative); Leukocyte Esterase,Urine Negative (Negative); Mucus,Urine Few per lpf (None-Few); Nitrite,Urine Negative (Negative); Protein,Urine 30 mg/dL (Neg-Trace); RBC,Urine 0-3 per hpf (0-3); Specific Gravity,Urine 1.024 (1.010-1.025); Squamous Epithelial Cell,Urine Few per hpf (None-Few); Urobilinogen,Urine Normal (Normal); WBC,Urine 0-3 per hpf (0-3)
[2021-04-12] MEDS: Insulin LISPRO 300 UNITS/3 ML VIAL SUBQ SCH ×3 (07:38→17:31)
[2021-04-12 07:45] LABS: Sodium, Urine 18.8 mEq/L
[2021-04-12] MEDS: Aspirin 81 MG TAB.CHEW PO SCH (08:29)
[2021-04-12 10:23] LABS: Estimated Average Glucose 131 mg/dl; Hemoglobin A1C 6.2 %
[2021-04-12] MEDS: Nystatin POWDER 30 GM BOTTLE TP SCH (21:52)
[2021-04-13 01:37] LABS: Hematocrit 45.6 % (37.5-50.1); Hemoglobin 15.2 g/dL (12.9-16.9); Mean Corpuscular HGB Conc 33.3 g/dL (31.6-35.5); Mean Corpuscular Hemoglobin 29.3 pg (28.0-33.3); Mean Platelet Volume 11.7 fL (9.4-12.4); Platelet Count 223 K/mcL (140-400); Red Blood Count 5.18 M/mcL (4.19-5.50); Red Cell Distribution Width 13.7 % (11.5-14.5); White Blood Count 5.9 K/mcL (4.3-11.1)
[2021-04-13 02:00] LABS: BUN/Creatinine Ratio 33 (6-26); Blood Urea Nitrogen 27 mg/dL (8-23); Calcium 8.5 mg/dL (8.6-10.3); Carbon Dioxide 22 mEq/L (23-29); Chloride 105 mEq/L (98-107); Glucose 96 mg/dL (70-105); Osmolality,Calculated 291 (280-300); Potassium 3.5 mEq/L (3.5-5.1); Sodium 138 mEq/L (136-145); eGFR For African Americans > 60 (> 60); eGFR For Non-African Americans > 60 (> 60)
[2021-04-13] MEDS: *HR* Heparin 5,000 UNIT/ML VIAL SQ SCH ×2 (05:20→17:39)
[2021-04-13] MEDS: Insulin LISPRO 300 UNITS/3 ML VIAL SUBQ SCH ×3 (08:00→17:01)
[2021-04-13] MEDS: Aspirin 81 MG TAB.CHEW PO SCH (08:18)
[2021-04-13] MEDS: Nystatin POWDER 30 GM BOTTLE TP SCH (08:30)
[2021-04-13] MEDS ORDERED: Bismuth Subsalicylate 120 ML ORAL SUSPENSION PO PRN (14:43)
[2021-04-13] MEDS: Gabapentin 300 MG CAPSULE PO SCH ×2 (15:45→20:25)
[2021-04-13] MEDS: Furosemide 20 MG TABLET PO SCH (15:45)
[2021-04-13] MEDS: Carbidopa/Levodopa ER 50/200 TABLET PO SCH (20:43)
[2021-04-14] MEDS: Nystatin POWDER 30 GM BOTTLE TP SCH ×3 (06:09→21:31)
[2021-04-14] MEDS: Carbidopa/Levodopa ER 50/200 TABLET PO SCH ×3 (06:12→21:30)
[2021-04-14] MEDS: *HR* Heparin 5,000 UNIT/ML VIAL SQ SCH ×2 (06:13→18:20)
[2021-04-14] MEDS: Insulin LISPRO 300 UNITS/3 ML VIAL SUBQ SCH ×3 (08:49→16:45)
[2021-04-14] MEDS: Gabapentin 300 MG CAPSULE PO SCH ×3 (10:14→21:28)
[2021-04-14] MEDS: Cyanocobalamin (B-12) 1,000 MCG TABLET PO SCH (10:14)
[2021-04-14] MEDS: Aspirin 81 MG TAB.CHEW PO SCH (10:14)
[2021-04-14] MEDS: Furosemide 20 MG TABLET PO SCH (10:14)
[2021-04-14] MEDS: Famotidine 20 MG TABLET PO SCH (10:14)
[2021-04-15] MEDS: *HR* Heparin 5,000 UNIT/ML VIAL SQ SCH ×2 (05:37→17:47)
[2021-04-15] MEDS: Carbidopa/Levodopa ER 50/200 TABLET PO SCH ×3 (05:38→21:06)
[2021-04-15] MEDS: Insulin LISPRO 300 UNITS/3 ML VIAL SUBQ SCH ×3 (07:30→17:47)
[2021-04-15] MEDS: Cyanocobalamin (B-12) 1,000 MCG TABLET PO SCH (10:46)
[2021-04-15] MEDS: Gabapentin 300 MG CAPSULE PO SCH ×3 (10:46→21:05)
[2021-04-15] MEDS: Aspirin 81 MG TAB.CHEW PO SCH (10:46)
[2021-04-15] MEDS: Furosemide 20 MG TABLET PO SCH (10:46)
[2021-04-15] MEDS: Famotidine 20 MG TABLET PO SCH (10:47)
[2021-04-15] MEDS: Nystatin POWDER 30 GM BOTTLE TP SCH ×2 (10:47→21:58)
[2021-04-15] MEDS ORDERED: 0.9 % Sodium Chloride 1,000 ML IVC SCH (13:00)
[2021-04-16] MEDS: *HR* Heparin 5,000 UNIT/ML VIAL SQ SCH (05:54)
[2021-04-16] MEDS: Carbidopa/Levodopa ER 50/200 TABLET PO SCH ×2 (05:55→12:03)
[2021-04-16] MEDS: Insulin LISPRO 300 UNITS/3 ML VIAL SUBQ SCH ×3 (07:46→16:53)
[2021-04-16] MEDS: Aspirin 81 MG TAB.CHEW PO SCH (08:38)
[2021-04-16] MEDS: Cyanocobalamin (B-12) 1,000 MCG TABLET PO SCH (08:38)
[2021-04-16] MEDS: Furosemide 20 MG TABLET PO SCH (08:39)
[2021-04-16] MEDS: Famotidine 20 MG TABLET PO SCH (08:39)
[2021-04-16] MEDS: Gabapentin 300 MG CAPSULE PO SCH ×2 (08:39→15:19)
[2021-04-16] MEDS: Nystatin POWDER 30 GM BOTTLE TP SCH (08:40)
[2021-04-16 16:06] VITALS: BP 118/74; PULSE 60; TEMP 97.9; O2SAT 95
[2021-04-16 16:40] LABS: Adenovirus Not Detected (Not Detect); Bordetella Pertussis Not Detected (Not Detect); Chlamydophila pneumoniae Not Detected (Not Detect); Coronavirus 229E Not Detected (Not Detect); Coronavirus HKU1 Not Detected (Not Detect); Coronavirus NL63 Not Detected (Not Detect); Coronavirus OC43 Not Detected (Not Detect); Human Metapneumovirus Not Detected (Not Detect); Human Rhinovirus/Enterovirus Not Detected (Not Detect); Influenza A Subtype 2009 H1 Not Detected (Not Detect); Influenza B Not Detected (Not Detect); Mycoplasma pneumoniae Not Detected (Not Detect); Parainfluenza Virus 1 Not Detected (Not Detect); Parainfluenza Virus 2 Not Detected (Not Detect); Parainfluenza Virus 3 Not Detected (Not Detect); Parainfluenza Virus 4 Not Detected (Not Detect); Respiratory Syncytial Virus Not Detected (Not Detect); SARS-CoV-2 Not Detected (Not Detect)
== END 2021-04-16 18:37 ==
LOC: 3ANU 17:58 → EMEROOARM 17:58 → SUATTDRO 23:43 → 3ANU 04-12 01:34
PROVIDERS: ADMIT Internal Medicine; ATTEND Family Medicine

== ENCOUNTER 2021-07-08 10:36 | Observation (INO) ==
[2021-07-08] MEDS ORDERED: Isovue-370 500 ML BOTTLE IVP ONE (10:41)
[2021-07-08] MEDS ORDERED: 0.9 % Sodium Chloride 1,000 ML IVC ONE (10:41)
[2021-07-08 10:59] LABS: Hematocrit 49.2 % (37.5-50.1); Hemoglobin 16.7 g/dL (12.9-16.9); Mean Corpuscular HGB Conc 33.9 g/dL (31.6-35.5); Mean Corpuscular Volume 91.3 fL (83.0-100.0); Mean Platelet Volume 9.6 fL (9.4-12.4); Platelet Count 202 K/mcL (140-400); Red Blood Count 5.39 M/mcL (4.19-5.50); White Blood Count 6.7 K/mcL (4.3-11.1)
[2021-07-08 11:15] LABS: BUN/Creatinine Ratio 19 (6-26); Blood Urea Nitrogen 17 mg/dL (8-23); Calcium 9.1 mg/dL (8.6-10.3); Carbon Dioxide 26 mEq/L (23-29); Chloride 105 mEq/L (98-107); Glucose 113 mg/dL (70-105); Osmolality,Calculated 292 (280-300); Potassium 3.8 mEq/L (3.5-5.1); Sodium 140 mEq/L (136-145); Troponin I < 0.03 ng/mL (< 0.04); eGFR For African Americans > 60 (> 60); eGFR For Non-African Americans > 60 (> 60)
[2021-07-08 12:03] LABS: INR 1.1
[2021-07-08 12:29] LABS: Bilirubin,Urine Negative (Negative); Blood,Urine Negative (Negative); Clarity,Urine Clear (Clear); Color,Urine Light-Yellow (Yellow); Glucose,Urine (UA) Normal (Normal); Ketones,Urine Negative (Negative); Leukocyte Esterase,Urine Negative (Negative); Nitrite,Urine Negative (Negative); PH,Urine 6.5 pH Units (5.0-8.0); Protein,Urine Negative (Neg-Trace); Specific Gravity,Urine 1.026 (1.010-1.025); Urobilinogen,Urine Normal (Normal)
[2021-07-08] MEDS ORDERED: Mag Hydrox/Al Hydrox/Simeth 30 ML UDC PO PRN (13:37)
[2021-07-08] MEDS ORDERED: Naloxone 0.4 MG/ML INJ IVP PRN (13:37)
[2021-07-08] MEDS ORDERED: Ondansetron ODT 4 MG TAB.RAPDIS SL PRN (13:37)
[2021-07-08] MEDS ORDERED: Melatonin 3 MG TABLET PO PRN (13:37)
[2021-07-08] MEDS ORDERED: MOM Conc 10 ML UD.LIQ PO PRN (13:37)
[2021-07-08] MEDS ORDERED: Dextrose 4 GM Chewable Tablets PO PRN ×2 (13:39)
[2021-07-08] MEDS ORDERED: D5% in Water 1,000 ML IVC PRN (13:39)
[2021-07-08] MEDS ORDERED: *HR* Dextrose 50 % in Water (Syg) 50 ML SYRINGE IVP PRN (13:39)
[2021-07-08 14:08] LABS: Estimated Average Glucose 117 mg/dl; Hemoglobin A1C 5.7 %
[2021-07-08] MEDS: Insulin LISPRO 300 UNITS/3 ML VIAL SUBQ SCH ×2 (16:32→21:11)
[2021-07-08] MEDS: Carbidopa/Levodopa ER 50/200 TABLET PO SCH (22:00)
[2021-07-09 05:37] LABS: Basophils # 0.1 K/mcL (0.0-0.2); Basophils % 0.6 %; Eosinophils # 0.3 K/mcL (0.0-0.6); Hematocrit 47.9 % (37.5-50.1); Hemoglobin 16.2 g/dL (12.9-16.9); Immature Granulocytes % 1.3 % (0-4); Lymphocytes # 1.4 K/mcL (0.6-4.6); Lymphocytes % 17.9 %; Mean Corpuscular HGB Conc 33.8 g/dL (31.6-35.5); Mean Corpuscular Hemoglobin 30.9 pg (28.0-33.3); Mean Corpuscular Volume 91.2 fL (83.0-100.0); Mean Platelet Volume 10.5 fL (9.4-12.4); Monocytes # 0.8 K/mcL (0.0-1.3); Monocytes % 10.1 %; Neutrophils # 5.2 K/mcL (1.6-8.9); Platelet Count 231 K/mcL (140-400); Red Blood Count 5.25 M/mcL (4.19-5.50); Red Cell Distribution Width 14.2 % (11.5-14.5); Segmented Neutrophils % 66.1 %; White Blood Count 7.9 K/mcL (4.3-11.1)
[2021-07-09 06:00] LABS: Alanine Aminotransferase < 3 Units/L (7-52); Albumin 3.7 g/dL (3.5-5.7); Albumin/Globulin Ratio 1.2 (1.1-2.2); Alkaline Phosphatase 54 Units/L (34-104); Aspartate Amino Transferase 18 Units/L (13-39); BUN/Creatinine Ratio 22 (6-26); Bilirubin,Total 0.7 mg/dL (0.3-1.0); Blood Urea Nitrogen 19 mg/dL (8-23); Calcium 9.6 mg/dL (8.6-10.3); Carbon Dioxide 26 mEq/L (23-29); Chloride 102 mEq/L (98-107); Chol/HDL Ratio 2.9 (0-4.9); Cholesterol 119 mg/dL (< 200); Globulin 3.1 g/dL (2.4-3.5); Glucose 112 mg/dL (70-105); HDL Cholesterol 41 mg/dL (40-59); LDL Cholesterol,Calculated 61 mg/dL (< 100); Osmolality,Calculated 287 (280-300); Potassium 3.7 mEq/L (3.5-5.1); Sodium 137 mEq/L (136-145); Total Protein 6.8 g/dL (6.4-8.9); Triglycerides 84 mg/dL (< 150); eGFR For African Americans > 60 (> 60); eGFR For Non-African Americans > 60 (> 60)
[2021-07-09] MEDS: *HR* Enoxaparin 40 MG/0.4 ML SYRINGE SQ SCH (06:01)
[2021-07-09] MEDS: Carbidopa/Levodopa ER 50/200 TABLET PO SCH ×3 (06:01→21:01)
[2021-07-09] MEDS: Insulin LISPRO 300 UNITS/3 ML VIAL SUBQ SCH ×4 (07:43→21:02)
[2021-07-09] MEDS: Aspirin 81 MG TAB.CHEW PO SCH (07:48)
[2021-07-09] MEDS ORDERED: GuaiFENesin Liq 200 MG/10 ML UDC PO PRN (21:07)
[2021-07-10] MEDS: Carbidopa/Levodopa ER 50/200 TABLET PO SCH ×3 (05:46→12:16)
[2021-07-10] MEDS: *HR* Enoxaparin 40 MG/0.4 ML SYRINGE SQ SCH (05:46)
[2021-07-10] MEDS: Insulin LISPRO 300 UNITS/3 ML VIAL SUBQ SCH ×2 (07:13→11:29)
[2021-07-10] MEDS: Aspirin 81 MG TAB.CHEW PO SCH (07:17)
[2021-07-10] MEDS ORDERED: Ondansetron ODT 4 MG TAB.RAPDIS SL PRN (07:37)
[2021-07-10 11:16] VITALS: BP 119/66; PULSE 73; TEMP 97.6; O2SAT 98
[2021-07-10 11:32] LABS: Adenovirus Not Detected (Not Detect); Bordetella Pertussis Not Detected (Not Detect); Chlamydophila pneumoniae Not Detected (Not Detect); Coronavirus 229E Not Detected (Not Detect); Coronavirus HKU1 Not Detected (Not Detect); Coronavirus NL63 Not Detected (Not Detect); Coronavirus OC43 Not Detected (Not Detect); Human Metapneumovirus Not Detected (Not Detect); Human Rhinovirus/Enterovirus Not Detected (Not Detect); Influenza A Subtype 2009 H1 Not Detected (Not Detect); Influenza B Not Detected (Not Detect); Mycoplasma pneumoniae Not Detected (Not Detect); Parainfluenza Virus 1 Not Detected (Not Detect); Parainfluenza Virus 2 Not Detected (Not Detect); Parainfluenza Virus 3 Not Detected (Not Detect); Parainfluenza Virus 4 Not Detected (Not Detect); Respiratory Syncytial Virus Not Detected (Not Detect); SARS-CoV-2 Not Detected (Not Detect)
== END 2021-07-10 14:39 ==
LOC: EMEROOARM 10:36 → 3BNU 10:36 → SUATTDRO 13:24 → 3BNU 14:02
PROVIDERS: ADMIT Internal Medicine; ATTEND Registered Nurse